=== PATIENT | male | born 1985 | race Caucasian/White ===

== ENCOUNTER 2016-06-13 19:50 | Emergency (ER) ==
[2016-06-13 20:13] VITALS: BP 139/75
[2016-06-13] MEDS ORDERED: NORCO-7.5 PO ONE (20:58)
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
--- NOTE | 2016-06-14 08:51 | Diag Imaging Result Document ---
PROCEDURE NAME: CHEST-2 VIEWS - 06/13/2016 FRONTAL AND LATERAL CHEST, TWO VIEWS: COMPARISON: 08/31/2014. FINDINGS: The lungs are well expanded. The heart is not enlarged. The vessels are not distended. No consolidation. No pleural effusions. No free air beneath the diaphragm. Minimal increased markings in the left base behind the heart. IMPRESSION: There may be a small left lower lobe infiltrate behind the heart.
--- NOTE | 2016-06-14 11:01 | Diag Imaging Result Document ---
PROCEDURE NAME: STERNUM - 06/13/2016 STERNUM 3 VIEWS: FINDINGS: There is no fracture identified. There is no destructive lesion identified. IMPRESSION: Unremarkable exam. No fracture identified.
== END 2016-06-13 22:50 | disposition home or self-care (01) ==
LOC: P.ED 19:50
DX: R07.89 Other chest pain (principal); R07.81 Pleurodynia; I10 Essential (primary) hypertension; G89.29 Other chronic pain; F17.210 Nicotine dependence, cigarettes, uncomplicated; Z71.6 Tobacco abuse counseling
CPT/HCPCS: 71020; 71120; 99283

== ENCOUNTER 2016-06-18 16:27 | Emergency (ER) ==
[2016-06-18 16:29] VITALS: BP 147/87
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
== END 2016-06-18 18:01 | disposition home or self-care (01) ==
LOC: P.ED 16:27
DX: G89.29 Other chronic pain (principal); F41.9 Anxiety disorder, unspecified; R52 Pain, unspecified; R47.81 Slurred speech; I10 Essential (primary) hypertension; F17.210 Nicotine dependence, cigarettes, uncomplicated; Z79.899 Other long term (current) drug therapy; Z76.0 Encounter for issue of repeat prescription; Z71.6 Tobacco abuse counseling
CPT/HCPCS: 99281